=== PATIENT | male | born 1960 | race Caucasian/White ===

== ENCOUNTER 2021-01-14 08:12 | Outpatient (CLI) | payer OTHER, SELFPAY | END 2021-01-14 08:13 | disposition home or self-care (01) | LOC: ANHCOVIDVC 08:12 | PROVIDERS: PCP Family Medicine | DX: Z23 Encounter for immunization (principal) | CPT/HCPCS: 0001A; 91300 ==

== ENCOUNTER 2021-02-04 08:14 | Outpatient (CLI) | payer OTHER, SELFPAY | END 2021-02-04 08:15 | LOC: ANHCOVIDVC 08:14 | PROVIDERS: PCP Family Medicine | DX: Z23 Encounter for immunization (principal) | CPT/HCPCS: 0002A; 91300 ==

== ENCOUNTER → 2021-04-06 08:38 | Outpatient (CLI) | payer OTHER, SELFPAY ==
--- NOTE | ~2021-04-06 | XR_ITS ---
EXAMINATION: XR shoulder RT min 2V DATE: 04/06/2021 08:59 INDICATION: Right shoulder pain. TECHNIQUE: 4 views of right shoulder were obtained. COMPARISON: None. FINDINGS: Bone alignment is normal. No fracture. There is moderate osteoarthritis of glenohumeral bever[place] nt and mild osteoarthritis of acromioclavicular joint. A calcified right lung nodule is consistent wi th old granulomatous disease. IMPRESSION: 1. Polyarticular osteoarthritis. Reviewed, dictated and finalized at location B.
--- NOTE | ~2021-04-06 | XR_ITS ---
EXAMINATION: XR shoulder LT min 2V DATE: 04/06/2021 08:59 INDICATION: Left shoulder pain. TECHNIQUE: 4 views of left shoulder were obtained. COMPARISON: None. FINDINGS: Bone alignment is normal. No fracture. There is mild osteoarthritis of glenohumeral joint a nd acromioclavicular joint. IMPRESSION: 1. Mild polyarticular osteoarthritis. Reviewed, dictated and finalized at location B.
== END ==
PROVIDERS: PCP Family Medicine; Visit Provider Physician Assistant Medical
DX: M19.012 Primary osteoarthritis, left shoulder (principal); M19.011 Primary osteoarthritis, right shoulder
CPT/HCPCS: 73030

== ENCOUNTER 2024-04-09 08:59 | Outpatient (CLI) | payer MEDICARE, OTHER, SELFPAY ==
--- NOTE | ~2024-04-09 | XR_ITS ---
Lumbosacral Spine: AP and lateral views Clinical History: Pain Findings: The normal lordotic curve is maintained. No fracture or subluxation. There is severe degene rative disc narrowing at L4-L5. There is mild to moderate degenerative disc changes at remaining lumb ar spine. There is severe facet arthropathy throughout the lumbar spine. The sacroiliac joints are no rmally outlined. Impression: Advanced degenerative spondylosis, as above. Reviewed, dictated and finalized at location M. Impression: Advanced degenerative spondylosis, as above.
== END 2024-04-09 09:00 ==
PROVIDERS: PCP Family Medicine; Visit Provider Nurse Practitioner Adult Health
DX: M47.896 Other spondylosis, lumbar region (principal)
CPT/HCPCS: 72100

== ENCOUNTER 2025-04-24 08:03 | Outpatient (CLI) | payer MEDICARE, OTHER, SELFPAY ==
--- NOTE | ~2025-04-24 | CT_ITS ---
Non-contrast CT scan of the Pelvis Clinical indication: Umbilical hernia Technique: 2.5 mm axial scans were obtained through the pelvis without intravenous or oral contrast. Dose reduction technique was used on this scan by utilizing automated exposure control and iterative reconstruction technique. The dose-length product (DLP) was 696.78 mGy-cm. Findings: Small fat-containing umbilical hernia present. Visualized bowel loops are unremarkable. No bowel wall thickening or bowel obstruction evident. Urinary bladder unremarkable. Prostate gland is enlarged. No ascites. Suggestion of undescended right testis. No fracture or dislocation seen. Osseous structures are intact. Impression: Small fat-containing umbilical hernia. Suspected undescended right testis. Correlate with physical exam. Enlarged prostate gland. Reviewed, dictated and finalized at [facility]. Impression: Small fat-containing umbilical hernia. Suspected undescended right testis. Correlate with physical exam. Enlarged prostate gland.
== END 2025-04-24 08:04 | disposition home or self-care (01) ==
LOC: MICIMG 08:03
PROVIDERS: PCP Family Medicine; Visit Provider Surgery
DX: K42.9 Umbilical hernia without obstruction or gangrene (principal); R10.31 Right lower quadrant pain
CPT/HCPCS: 72192

== ENCOUNTER 2025-06-01 12:57 | Outpatient (CLI) | payer MEDICARE, OTHER, SELFPAY ==
--- NOTE | ~2025-06-01 | MR_ITS ---
EXAMINATION: MR brain/brain stem wo/w con DATE: 06/01/2025 13:46 INDICATION: Chronic migraine TECHNIQUE: Magnetic resonance imaging (MRI) of the brain and brainstem was performed without and with 20 mL Multihance intravenous contrast. Sequences included sagittal and axial T1-weighted SE, axial d iffusion-weighted FS SE, axial 3D SWAN, axial T2-weighted FLAIR, and axial T2-weighted FSE. Postcontr ast axial and coronal T1-weighted SE was obtained. Apparent diffusion coefficient (ADC) maps were cre ated. COMPARISON: Head CT dated 12/20/[address] angiogram dated 05/28/2019 FINDINGS: There are no areas of restricted diffusion to suggest acute infarction. No intracranial hemorrhage or abnormal intracranial mass lesion. There is mild scattered nonspecific increased T2-weighted signal intensity in the cerebral white matter, predominantly involving the deep and periventricular white ma tter which is within normal limits for age. There are no intraparenchymal signal abnormalities seen o n the other pulse sequences. The ventricles are symmetric and normal in size. There are no abnormal e xtra-axial fluid collections. Flow voids are seen in the cerebral arteries on the T2-weighted sequenc es consistent with their expected patency. Mild mucosal thickening the bilateral ethmoid and frontal sinuses and moderate thickening along the floor of the bilateral maxillary sinuses. Visualized orbits and soft tissues are unremarkable. There are no areas of abnormal enhancement on the post contrast i mages. IMPRESSION: 1. Normal for age brain with mild periventricular predominant white matter T2 hyperintensity consiste nt with chronic small vessel ischemic disease. No acute intracranial process or abnormally enhancing brain lesions. Reviewed, dictated and finalized at location A. IMPRESSION: 1. Normal for age brain with mild periventricular predominant white matter T2 h yperintensity consistent with chronic small vessel ischemic disease. No acute i ntracranial process or abnormally enhancing brain lesions.
== END 2025-06-01 12:58 | disposition home or self-care (01) ==
LOC: MICIMG 12:58
PROVIDERS: PCP Family Medicine; Visit Provider Registered Nurse
DX: G43.709 Chronic migraine without aura, not intractable, without status migrainosus (principal)
CPT/HCPCS: 70553; A9577

== ENCOUNTER 2025-08-25 09:12 | Outpatient (CLI) | payer MEDICARE, SELFPAY ==
--- NOTE | 2025-08-25 09:31 | ECG_ITS ---
Test Date: 2025-08-25 09:33:24 Measurements Intervals [place] Rate: 48 P: 55 IN: 215 QRS: 3 QRSD: 115 T: 24 QT: 399 QTc: 360 Interpretive Statements SINUS BRADYCARDIA WITH FIRST DEGREE AV BLOCK INTRAVENTRICULAR CONDUCTION DELAY BORDERLINE R WAVE PROGRESSION, ANTERIOR LEADS CONSIDER INFERIOR INFARCT, AGE INDETERMINATE ABNORMAL ECG No previous ECG available for comparison Electronically Signed On 08-25-2025 11:40:20 CDT by Hussain Goins D.O.
--- OUTSIDE RECORDS SUMMARY | 2025-08-25 10:13 | XMS_ITS | Clinical Summary ---
Author Organization [facility] [facility] Address [address] [place] [address] Care Team Providers Care Truck Bench Mechanic Name Role Phone José Howard MD Primary Care Provider [phone] Allergies No known active allergies Medications CLARINEX 5 mg Oral Tab Take 5 mg by mouth daily. 7 Active NASONEX NA Administer in each nostril daily. Active ATENOLOL 50 mg Oral Tab Take 50 mg by mouth daily. 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 Active MULTIVITAMIN Oral Tab Take by mouth. Activ e DICLOFENAC SODIUM PO Take 50 mg by mouth.As needed 8 Active mometasone (NASONEX) 50 mcg/actuation [place], Non-Aerosol ADMINISTER 2 SPRAYS IN EACH NOSTRIL ONCE DAILY 51 Gram 1 01/11/2023 4:45 PM PRINTING TABLE HAND 2 Active naproxen sodium (ANAPROX DS) 550 mg tablet Take 1 Tablet (550 mg) by mouth every 12 hours as needed for pain. 30 Tablet 01/31/2023 10:52 AM CDT 3 Active celecoxib (CeleBREX) 200 mg capsule Take 1 Capsule (200 mg) by mouth 2 times daily. 60 Capsule 02/15/2023 4:20 PM CDT 3 Active colchicine (COLCRYS) 0.6 mg tablet Take 2 tablets at first sign of a flare, then take 1 tablet one hour later. 3 Tablet 06/09/2023 12:55 PM CDT 3 Active mometasone (NASONEX) 50 mcg/actuation [place], Non-Aerosol ADMINISTER 2 SPRAYS IN EACH NOSTRIL ONCE DAILY. 51 Gram 1 04/30/2024 9:04 AM CDT 4 Active rosuvastatin (CRESTOR) 20 mg tablet Take 1 Tablet (20 mg) by mouth daily. 90 Tablet 05/28/2024 5:41 PM CDT 4 Active galcanezumab-gn lm (Emgality Pen) 120 mg/mL Pen Injector Inject 1 mL by subcutaneous injection every 28 days. Administer 2 injections together for the first dose. 2 mL 2 4 Active SUMAtriptan (IMITREX) 50 mg tablet TAKE 1 TABLET BY MOUTH AT ONSET OF MIGRAINE. MAY REPEAT DOSE IN 2 HOURS IF NO RELIEF. MAX OF 2 TABLETS PER 24 HOURS. 9 Tablet 4 Active desloratadine (CLARINEX) 5 mg tablet TAKE ONE TABLET BY MOUTH ONCE DAILY 90 Tablet 4 Active SUMAtriptan (IMITREX) 50 mg tablet TAKE 1 TABLET BY MOUTH AT ONSET OF HEADACHE. MAY REPEAT DOSE IN 2 HOURS IF NO RELIEF. MAX OF 2 TABLETS PER 24 HOURS. 9 Tablet 2 5 Active Active Problems Problem Noted Date Diagnosed Date Migraine with aura 02/02/2009 Encounters Date Type Department Care Team Description 07/21/2025 External Device Data [facility] ABSTRACTION Provider, Abstract from Last 3 Months Immunizations Immunization Administration Dates Next Due (ADACEL/BOOSTRIX)(10 YR UP) TDAP VACCINE, 0.5ML, IM 08/15/2023 (PREVNAR 20)(6 WKS UP) PNEUM OCOCCAL CONJUGATE VACCINE 20-VALENT (PCV20), POLYSACCHARIDE CCH284 CONJUGATE, ADJUVANT 0.5 ML (PF) IM 08/15/2023 INFLUENZA VACCINE HIGH DOSE QUADRIVALENT 65 YR U P PF IM 09/03/2023 Family History Medical History Relation Name Comments Heart Disease Father Stroke Father Breast Cancer Mother Relation Name Status Comments Father Mother Social History Tobacco Use Types Packs/Day Years Used Date Smoking Tobacco: Never Alcohol Use Standard Drinks/Week Comments Yes 0 (1 standard drink = 0.6 oz pur e alcohol) Sex and Gender Information Value Date Recorded Sex Assigned at Not on file 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 Gender Identity Not on file Sexual Orientation Not on file Last Filed Vital Signs Vital Sign Reading Time Taken Comments Blood Pressure 118/70 02/08/2009 7:20 AM CDT Pulse 40 02/08/2009 7:20 AM CDT Temperature - - Respiratory Rate - - Oxygen Saturation - - Inhaled Oxygen Concentration - - Weight 103.4 kg (228 lb) 02/08/2009 7:20 AM CDT Height 188 cm (6' 2) 02/08/2009 7:20 AM CDT Body Mass Index 29.27 02/08/2009 7:20 AM CDT Plan of Treatment Health Maintenance Due Date Last Done Comments COLORECTAL SCREENING 2003 Colorectal Cancer Screening 2003 FIT-DNA Q 3 years 2003 FIT/FOBT Q 1 year 2003 Flex Sig/CT Colonography Q 5 years 2003 ZOSTER VACCINE (1 of 2) 2008 INFLUENZA VACCINE (#1) 2025 09/03/2023 RSV VACCINE (60+ or ) (1 - 1-dose 75+ series) 2033 DTAP/TDAP/TD VACCINES (2 - Td or Tdap) 08/15/2033 PNEUMOCOCCAL VACCINE 50+ YEARS Completed 08/15/2023 Insurance RX [facility] [employer] [facility] [employer] [employer] [facility] [employer] Care Teams Truck Bench Mechanic Relationship Specialty Start Date End Date José Howard MD [address] [place] [address] PCP - General 02/08/09
--- OUTSIDE RECORDS SUMMARY | 2025-08-25 10:13 | XMS_ITS | Encounter Summary ---
Author Organization [facility] Address [address] [facility] [address] [place] [address] Care Team Providers Care Mine Safety Manager Name Role Phone José Howard MD Primary Care Provider [phone] José Howard MD Primary Care Provider [phone] Encounter Details Date Type Department Care Team (Late st Contact Info) Description 11/29/2016 Orders Only [facility] ProviderMorris MD [address] [place] [id number] Social History Tobacco Use Types Packs/Day Years Used Date Smoking Tobacco: Never Alcohol Use Standard Drinks/Week Comments Yes 0 (1 standard drink = 0.6 oz pur e alcohol) Sex and Gender Information Value Date Recorded Sex Assigned at Not on file 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 Historical Provider [facility] Final Result documented in this encounter Visit Diagnoses Not on filedocumented in this encounter Care Teams Mine Safety Manager Relationship Specialty Start Date End Date José Howard MD PCP - General 02/09/17 José Howard MD PCP - General 07/25/10 02/08/17 documented as of this encounter
--- OUTSIDE RECORDS SUMMARY | 2025-08-25 10:13 | XMS_ITS | Clinical Summary ---
Author Organization [facility] [place] [address] Address [address] [place] [address] Care Team Providers Care Visor Installer Name Role Phone José Howard MD Primary Care Provider [phone] Allergies No known active allergies Medications cholecalciferol (VITAMIN D-3) 5,000 unit tablet Take 0.4 tablets (2,000 Units total) by mouth daily Active desloratadine (CLARINEX) 5 mg tablet Take 1 tablet (5 mg total) by mouth daily Active mometasone (NASONEX) 50 mcg/actuation nasal spray Administer 2 sprays into each nostril daily Active vit C/E/Zn/coppr/sarah tein/zeaxan (PRESERVISION AREDS-2 ORAL) Take 2 tablet/capsule by mouth 2 (two) times a day. Active aspirin 81 mg enteric coated tablet Take 1 tablet (81 mg total) by mouth daily Active galcanezumab-gn lm 120 mg/mL syringe Inject 120 mg under the skin every 30 (thirty) days Active colchicine (COLCRYS) 0.6 mg tabletIndicatio ns:prevention of acute gout attack Take 2 tablets at first sign of a flare then 1 tablet an hour later 3 tablet 3 Active SUMAtriptan (IMITREX) 50 mg tablet as needed 4 Active rosuvastatin (CRESTOR) 20 mg tablet Take 1 tablet (20 mg total) by mouth daily 90 tablet 3 4 Active Active Problems Problem Noted Date Diagnosed Date Typical atrial flutter 10/01/2018 Anticoagulation management encounter 10/01/2018 Assessment & Plan (10/01/2018 3:33 PM HELP DESK TECHNICIAN): Presently, the patient is tolerating anticoagulation. He understands that he will need to remain on anticoagulation for at least 2 months post ablation. Paroxysmal atrial fibrillation 09/26/2018 Overview (09/26/2018): Added automatically from request for surgery [id number] Assessment & Plan (10/01/2018 3:32 PM HELP DESK TECHNICIAN): Patient has highly symptomatic paroxysmal atrial fibrillation. Review of his previous ECGs also demonstrates the presence of typical right atrial flutter. We discussed options for management, including antiarrhythmic drug therapy and ablation. The patient is averse to additional medications, but is interested in considering ablation. We discussed the rationale for atrial fibrillation ablation, including the steps involved in ablation. He will concurrently undergo ablation of his right atrial flutter. I detailed the risks of the procedure, including vascular injury/hematoma, myocardial injury/perforation, stroke, myocardial infarction, pulmonary vein stenosis, thermal esophageal injury, and . I estimated a 70-80% chance of freedom from long-term atrial arrhythmia, and the patient understands that occasionally a second procedure is necessary. Prior to ablation, I recommended that the patient undergo CT scanning with reconstruction of the left atrium, to assist with mapping and ablation. If the patient wishes to undergo ablation, my office will make the appropriate arrangements. From: November, Tavo LS, Troy JS, Alison H, Arnulfo SHANNON, Paula JE, Johnna YOANDY, Nicki PT, Vignesh MITCHELL, ME, Paulo KT, Honorio RL, Mustapha WG, Jeannine PJ, Amber CM, Lin CW. 2014 AHA/ACC/HRS guideline for the management of patients with atrial fibrillation: a report of the [place] College of Cardiology/[place] Heart Association Task Force on Practice Guidelines and the Heart Rhythm Society. J Am Vahe Cardiol 2014. 6.3. AF Catheter Ablation to Maintain Sinus Rhythm: Recommendations Class IIA. In patients with recurrent symptomatic paroxysmal AF, catheter ablation is a reasonable initial rhythm control strategy prior to therapeutic trials of antiarrhythmic drug therapy, after weighing risks and outcomes of drug and ablation therapy ([phone]). 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 (02/16/2017): SECOND CARDIOMYOPATH NOS Resolved Problems Problem Noted Date Diagnosed Date Resolved Date Paroxysmal ventricular tachycardia 03/28/2014 09/26/2017 Overview (02/15/2017): PAROX VENTRIC TACHYCARD Surgical History Surgery Date Site/Laterality Comments OTHER SURGICAL HISTORY Reveal implant CARDIAC CATHETERIZATION 10/12/2016 - 11/11/2016 APPENDECTOMY COLECTOMY sigmoid colectomy VASECTOMY 11/12/2000 - 11/11/2001 Medical History Medical History Date Comments Hypertension Obesity (BMI 30.0-34.9) Paroxysmal atrial fibrillation (HCC) Migraine Migraines 1985 Family History Medical History Relation Name Comments Depression Daughter Jaclyn Ramirez Heart attack Father Tom Ramirez Myocardial Inf arction; Hypertension Father Tom Ramirez Stroke Father Tom Ramirez Cancer Maternal Grandmother Lori Shaw Cancer Mother VTanisha Bree Ramirez Relation Name Status Comments Daughter Jaclyn Ramirez Father Tom Ramirez Alive Maternal Grandmother Lori Shaw Mother VTanisha Bree Ramirez Social History Tobacco Use Types Packs/Day Years Used Date Smoking Tobacco: Never Smokeless Tobacco: Never Alcohol Use Standard Drinks/Week Comments Yes 6 (1 standard drink = 0.6 oz pur e alcohol) beer almost daily1-2 Social Connection and Isolation Panel Answer Date Recorded In a typical week, how many times do you talk on the phone with family, friends, or neighbors? Once a week 06/05/2023 How often do you get togethe r with friends or relatives? More than three times a week 06/05/2023 How often do you attend chur ch or hoahaoism services? Never 06/05/2023 Do you belong to any clubs o r organizations such as lutheran groups, unions, fraternal or athletic groups, or school groups? No 06/05/2023 How often do you attend meet ings of the clubs or organizations you belong to? Not asked 06/05/2023 Are you , , di vorced, , never , or living with a partner? 06/05/2023 Overall Financial Resource Strain (CARDIA) Answe r Date Recorded How hard is it for you to pa y for the very basics like food, housing, medical care, and heating? Not hard at all 06/05/2023 PHQ-2 Answer Date Recorded Patient Health Questionnaire-2 Score 0 06/05/2023 [facility] [place] [facility] - Occupational Stress Questionnaire Answer Date Recorded Do you feel stress - tense, restless, nervous, or anxious, or unable to sleep at night because your mind is troubled all the time - these days? Only a little 06/05/2023 Exercise Vital Sign Answer Date Recorde d On average, how many days pe r week do you engage in moderate to strenuous exercise (like a brisk walk)? 2 days 06/05/2023 On average, how many minutes do you engage in exercise at this level? 10 min 06/05/2023 Hunger Vital Sign Answer Date Recorded Within the past 12 months, y ou worried that your food would run out before you got the money to buy more. Never true 06/05/20 23 Within the past 12 months, t he food you bought just didn't last and you didn't have money to get more. Never true 06/05/2023 PRAPARE - Transportation Answer Date Re corded In the past 12 months, has l ack of transportation kept you from medical appointments or from getting medications? No 05/13 In the past 12 months, has l ack of transportation kept you from meetings, work, or from getting things needed for daily living? No 06/05/2023 Housing Stability Vital Sign Answer Pee e Recorded In the last 12 months, was t here a time when you were not able to pay the mortgage or rent on time? No 06/05/2023 In the last 12 months, how many places have you lived? 1 06/05/2023 In the last 12 months, was t here a time when you did not have a steady place to sleep or slept in a fdc (including now)? No 06/05/2023 Sex and Gender Information Value Date Recorded Sex Assigned at Not on file Legal Sex Male 8:57 AM HELP DESK TECHNICIAN Gender Identity Male 06/18/2019 11:34 AM CDT Sexual Orientation Straight 06/18/2019 11 :34 AM CDT Obstetrics History Last Filed Vital Signs Vital Sign Reading Time Taken Comments Blood Pressure 114/68 07/30/2024 9:10 AM CDT Pulse 58 07/30/2024 9:10 AM CDT Temperature 36.8 C (98.3 F) 06/05/2023 2:39 PM CDT Respiratory Rate 16 02/08/2022 1:02 PM CDT Oxygen Saturation 99% 07/30/2024 9:10 AM CDT Inhaled Oxygen Concentration - - Weight 107.5 kg (237 lb) 07/30/2024 9:10 AM CDT Height 188 cm (6' 2) 07/30/2024 9:10 AM CDT Body Mass Index 30.43 07/30/2024 9:10 AM CDT Plan of Treatment Health Maintenance Due Date Last Done Comments Colon Cancer Screening-Colonoscopy 1958 Fall Risk Assessment 1960 Prostate Cancer Screening-PSA 1960 Pneumococcal vaccine 65+ (1 of 1 - PCV) 2008 Zoster Vaccine (1 of 2) 2008 Well Visit 65+ 2023 Depression Screening 06/05/2024 06/05/2023 Influenza Vaccine (#1) 2025 DTaP/Tdap/Td Vaccine (2 - Td or Tdap) 08/15/203302/2023 Hepatitis B Screening Completed 06/05/2023 Hepatitis C Screening Completed 06/05/2023 Procedures Procedure Name Priority Date/Time Associated Diagnosis Comments HEPATITIS C ANTIBODY Routine 06/05/2023 8:04 PM CDT Other chronic pain Arthralgia, unspecified joint from Last 3 Months or Most Recently Relevant to Health Maintenance Results * Hepatitis C antibody (06/05/2023 8:04 PM CDT) Hep C Ab Nonreactive Nonreactive ANDIE MCNULTY Comment: Interpretive Data Nonreactive: Antibodies to HCV not detected. Does NOT exclude the possibility of recent exposure to HCV. Equivocal: Equivocal for HCV antibodies. Supplemental molecular testing will be automatically performed to determine infection status in accordance with current CDC screening recommendations. Reactive: Positive for HCV antibodies. This may represent current or past HCV infection. Supplemental molecular testing will be automatically performed to determine current infection status in accordance with current CDC screening recommendations. Interpretive data was last revised on 2020. Blood 06/05/2023 8:04 PM CDT 06/05/2023 10:48 PM CDT Shaq Hernández MD LAB MICROBIOLOGY - G[place] [address] [address] [place] [address] from Last 3 Months or Most Recently Relevant to Health Maintenance [facility] [id number] [facility] [id number] [facility] [id number] MEDICARE Care Teams Visor Installer Relationship Specialty Start Date End Date José Howard MD PCP - General 02/09/17
== END 2025-08-25 09:13 | disposition home or self-care (01) ==
LOC: ANHSURGERY 09:15
PROVIDERS: PCP Family Medicine; Visit Provider Surgery
DX: R94.31 Abnormal electrocardiogram [ECG] [EKG] (principal); E78.2 Mixed hyperlipidemia; I10 Essential (primary) hypertension
CPT/HCPCS: 93005

== ENCOUNTER 2025-08-28 00:20 | Day surgery (SDC) | payer MEDICARE, SELFPAY ==
[2025-08-21 09:33] VITALS: BMI 29.5
--- NOTE | 2025-08-21 09:45 | PC.NURSE ---
[facility] has started construction of its new state of the art ER which will open Spring 2026. With this, we anticipate parking may be a challenge for some our surgical patients and families. Parking spaces are limited but are available for all Surgical, obstetrics, and ER patients sharing this lot. If you arrive and find you are having a hard time finding a parking space, please note that we understand the challenges, please drive around the hospital and park near Hospital Entrance 1. When you enter this entrance, you can ask a volunteer to direct or take you back to the surgical waiting area to check in. We appreciate everyone?s understanding of these expected challenges while we build for your future. Report to the Outpatient Waiting Room, entrance under the green pavilion located off [address], at time _1000_ on date _[id number]_. Planned Procedure Time: _1200_.? Time changes happen often and if your time is changed the preop area will call you the afternoon before. - You and your visitor will be asked to self-screen and do not enter if you have any COVID symptoms. Please call surgeon if you need to reschedule. - A mask is optional within the hospital at this time. Patients may have clear liquids (water, carbonated beverages, clear teas, apple juice) until 3 hours prior to surgery with a maximum of 20 ounces. - No food from midnight until time of surgery and no smoking, or chewing tobacco (or any form of nicotine). No chewing gum, candy or mints. Take only the following medications with a SIP of water on the morning of surgery: _Nose spray if needed__ DO NOT STOP ANY OF YOUR OTHER PRESCRIPTION MEDICATIONS PRIOR TO SURGERY EXCEPT THE FOLLOWING Hold all vitamins and supplements for 3 days per anesthesiologist. Medications to discontinue per physician Date to take last dose Please no make-up, nail bots[place], hairspray, perfume, deodorant, or body powder the day of surgery.? No jewelry (including any body piercings) or valuables the day of surgery, leave them at home.? Please take a shower or bath the night before, or the morning of, surgery with an antibacterial soap.? Wear comfortable, loose fitting clothing.? - Jewelry must be removed prior to entering the operating room.? Rings and piercings that are not removed may be cut off. - The hospital will not accept responsibility for valuables.? - Please leave all valuables, including medications, at home the day of surgery. If you are going home after surgery, a licensed heavy truck driver must drive you home.? - NO public transportation without another adult if you receive anesthesia. - We recommend that an adult stay with you for 24 hours following discharge. - We also recommend that you do not drive, make important decision, drink alcoholic beverages, or take any drugs that were not prescribed by your health care provider for at least 24 hours after your discharge time. Follow any additional instructions given to you from your surgeon. Telephone instructions given to __Ivan__and asked if any additional questions and then verbalized understanding. Patient advised to call surgeon office or pre surgery nurse liaison [phone] if any additional questions.
[2025-08-28] VITALS (8 sets, daily range): BP systolic 107–128; BP diastolic 63–73; PULSE 50–59; RESP 10–20; TEMP 36.2–36.5; O2SAT 99–100
--- OUTSIDE RECORDS SUMMARY | 2025-08-28 00:23 | XMS_ITS | Clinical Summary ---
Author Organization [employer] [place] Address [address] [place] [address] Care Team Providers Care Job Analyst Name Role Phone José Howard MD Primary Care Provider [phone] Allergies No known active allergies Medications CLARINEX 5 mg Oral Tab Take 5 mg by mouth daily. 7 Active NASONEX NA Administer in each nostril daily. Active ATENOLOL 50 mg Oral Tab Take 50 mg by mouth daily. 7 Active IMITREX 6 mg/0.5 mL subCUT Soln Inject 6 mg by subcutaneous injection Sheet Writer - Today. Active MULTIVITAMIN Oral Tab Take by mouth. Activ e DICLOFENAC SODIUM PO Take 50 mg by mouth.As needed 8 Active mometasone (NASONEX) 50 mcg/actuation [place], Non-Aerosol ADMINISTER 2 SPRAYS IN EACH NOSTRIL ONCE DAILY 51 Gram 1 01/11/2023 4:45 PM [employer]TER [employer]S 2 Active naproxen sodium (ANAPROX DS) 550 [...] CDT 3 Active mometasone (NASONEX) 50 mcg/actuation [place], Non-Aerosol ADMINISTER 2 SPRAYS IN EACH NOSTRIL [...] PNEUM OCOCCAL CONJUGATE VACCINE 20-VALENT (PCV20), POLYSACCHARIDE [id number] CONJUGATE, ADJUVANT 0.5 ML (PF) IM 08/15/2023 [...] on file Legal Sex Male 5:35 AM SORTER [employer]S Gender Identity Not on file Sexual Orientation [...] PLANS (INTERNAL) [facility] Care Teams Job Analyst Relationship Specialty Start Date End Date José Howard MD [address] [place] [address] PCP - General 02/08/09
--- OUTSIDE RECORDS SUMMARY | 2025-08-28 00:23 | XMS_ITS | Encounter Summary ---
Author Organization [facility] Address [address] [place] [address] Care Team Providers Care Director Validation Name Role Phone José Howard MD Primary Care Provider [phone] José Howard MD Primary Care Provider [phone] Encounter Details Date Type Department Care Team (Late st Contact Info) Description 11/29/2016 Orders Only [facility] ProviderMorris MD [address] [place] [address] Social History Tobacco Use Types Packs/Day Years Used Date Smoking Tobacco: Never Alcohol Use Standard Drinks/Week Comments Yes 0 (1 standard drink = 0.6 oz pur e alcohol) Sex and Gender Information Value Date Recorded Sex Assigned at Not on file Legal Sex Male 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
--- OUTSIDE RECORDS SUMMARY | 2025-08-28 00:23 | XMS_ITS | Clinical Summary ---
Author Organization [facility] [place] [address] Address [address] [place] [address] Care Team Providers Care Lye Treater Name Role Phone José Howard MD Primary Care Provider [phone] Allergies No known active allergies Medications cholecalcifero l (VITAMIN D-3) 5,000 unit tablet Take 0.4 tablets (2,000 Units total) by mouth daily Active desloratadine (CLARINEX) 5 mg tablet Take 1 tablet (5 mg total) by mouth daily Active mometasone (NASONEX) 50 mcg/actuation nasal spray Administer 2 sprays into each nostril daily Active vit C/E/Zn/coppr/l utein/zeaxan (PRESERVISION AREDS-2 ORAL) Take 2 tablet/capsule by mouth 2 (two) times a day. Active aspirin 81 mg enteric coated tablet Take 1 tablet (81 mg total) by mouth daily Active galcanezumab-g nlm 120 mg/mL syringe Inject 120 mg under the skin every 30 (thirty) days Active colchicine (COLCRYS) 0.6 mg tabletIndicati ons:prevention of acute gout attack Take 2 tablets at first sign of a flare then 1 tablet an hour later 3 tablet 06/08/20 23 Active SUMAtriptan (IMITREX) 50 mg tablet as needed 05/21/20 24 Active rosuvastatin (CRESTOR) 20 mg tablet TAKE 1 TABLET BY MOUTH EVERY DAY 90 tablet 3 08/26/20 25 Active rosuvastatin (CRESTOR) 20 mg tablet Take 1 tablet (20 mg total) by mouth daily 90 tablet 3 09/01/20 24 025 Discontinued Active Problems Problem Noted Date Diagnosed Date Typical atrial flutter 10/01/2018 Anticoagulation management encounter 10/01/2018 Assessment & Plan (10/01/2018 3:33 PM AUTOMOTIVE GENERAL SALES MANAGER): Presently, the patient is tolerating anticoagulation. He understands that he will need to remain on anticoagulation for at least 2 months post ablation. Paroxysmal atrial fibrillation 09/26/2018 Overview (09/26/2018): Added automatically from request for surgery [id number] Assessment & Plan (10/01/2018 3:32 PM AUTOMOTIVE GENERAL SALES MANAGER): Patient has highly symptomatic paroxysmal atrial fibrillation. [...] with atrial fibrillation: a report of the [place] College of Cardiology/[place] Heart Association Task Force on Practice Guidelines [...] Cancer Maternal Grandmother Lori Shaw Cancer Mother V. Bree Ramirez Relation Name Status Comments Daughter Jaclyn Ramirez Father Tom Ramirez Alive Maternal Grandmother Lori Shaw Mother VTanisha Ramirez Social History Tobacco Use Types Packs/Day [...] often do you attend chur ch or worship services? Never 06/05/2023 Do you belong to any clubs o r organizations such as restorationism groups, unions, fraternal or athletic groups, or [...] Recorded Patient Health Questionnaire-2 Score 0 06/05/2023 [facility] - Occupational Stress Questionnaire Answer Date Recorded [...] place to sleep or slept in a assisted (including now)? No 06/05/2023 Sex and Gender Information Value Date Recorded Sex Assigned at Not on file Legal Sex Male 8:57 AM AUTOMOTIVE GENERAL SALES MANAGER Gender Identity Male 06/18/2019 11:34 AM CDT [...] 8:04 PM CDT 06/05/2023 10:48 PM CDT us Shaq Hernández MD LAB MICROBIOLOGY - GENE RAL ORDERABLES Final Result Performing Organization Address City/[place] [address] [facility] Department [place] [address] from Last 3 Months or Most Recently Relevant to Health Maintenance Insurance [facility] [id number] [facility] [id number] [facility] [id number] MEDICARE Care Teams Lye Treater Relationship Specialty Start Date End Date José Howard MD PCP - General 02/09/17
--- OUTSIDE RECORDS SUMMARY | 2025-08-28 00:23 | XMS_ITS | Patient Health Record ---
Author Organization [facility] [email or web address] [place] ([address] Address [address] [place] [address] Care Team Providers Care Hide Worker Name Role Phone Lee MITCHELL, José Primary Care Provider Zandra Thomas Unavailable [phone] Allergies No Known Allergies Reason For Referral No Information Medications Medication SIG (Take, Route, Frequency, Duration) Notes Start Date End Date Status Mometasone Furoate 50 MCG/ACT ADMINISTER 2 SPRAYS IN EACH NOSTRIL ONCE DAILY Nasal; Duration: 90 Days Active Lisinopril 10 MG 10 MG ORALLY DAILY O ral; Duration: 90 Days Active Clarinex 5 MG 1 tablet Orally Once a day Active Aspirin Childrens 81 MG 1 tablet Orally Once a day Active Rosuvastatin Calcium 20 MG TAKE 1 TABLET BY MOUTH EVERY DAY Oral; Duration: 90 Days Active Qulipta 60 MG 1 tablet Orally Once a day; Duration: 30 days Active Vitamin D 50 MCG (1999) 1 tablet Oral ly Once a day Active Ubrelvy 100 MG 1 tablet Orally twice a day As needed 03/19/2025 Active Social History Tobacco Use: Social History Observation Description Date Details (start date - stop date) Never Smoker NA - NA Sex Assigned At : Social History Observation Description Sex Assigned At Male Smoking Smart Form: Question Answer Notes Are you a: never smoker Problems Problem Type SNOMED Code ICD Code Onset Dates Problem Status W/U Status Risk Notes Problem Chronic migraine without aura, non-refractor y (disorder) (138563479141 100) Migraine without aura, not intractable, without status migrainosus (G43.009) Active confirmed Problem Migraine with aura (4094784) Migraine with aura, not intractable, without status migrainosus (G43.109) Active confirmed Problem Chronic migraine without aura, non-intractab le (652500143390 100) Chronic migraine without aura, not intractable, without status migrainosus (G43.709) Active confirmed Vital Signs Oximetry 99 % 06/18/2025 Blood pressure diastolic 74 mm Hg 06/18/2025 Height 74 in 06/18/2025 Blood pressure systolic 143 mm Hg 06/18/2025 Weight 235.6 lbs 06/18/2025 BMI 30.25 kg/m2 06/18/2025 Encounters Encounter Location Date Provider Diagnosis [facility] [address] [place] [address] [employer] [address] [address] 04/30/2025 Zandra Pruitt Chronic migraine without aura, not intractable, without status migrainosus G43.[address] [address] 06/18/2025 Zandra Pruitt Chronic migraine without aura, not intractable, without status migrainosus G43.[address] [address] 03/19/2025 Zandra Pruitt Chronic migraine without aura, not intractable, without status migrainosus G43.[address] [address] 04/30/2025 Zandra Pruitt [address] [address] 04/30/2025 Zandra Pruitt [address] [address] 06/30/2025 Zandra Pruitt Chronic migraine without aura, not intractable, without status migrainosus G43.709 [facility] [address] [place] [address] 06/23/2025 Zandra Pruitt [facility] [address] [place] [address] 06/22/2025 Zandra Pruitt Assessments Encounter Date Diagnosis (ICD Code) Assessment Notes Treatment Notes Treatment Clinical Notes Section Notes 03/19/2025 Chronic migraine without aura, not intractable, without status migrainosus (ICD-10 - G43.709) -Abortive treatment plan: Start Ubrelvy 100 mg. Gave samples of Nurtec.-Preventi ve treatment plan: Discontinue Emgality. Start Qulipta 60 mg. Discussed taking the medication at night to avoid fatigue and drowsiness during the day. *Do not send script for Qulipta yet. The patient will trial this medication for two weeks (he has a month of medication left from his prior prescription) and let our office know if he wants to continue Qulipta or start Aimovig.-Educate d the patient on migraine lifestyle recommendations. I recommended the following measures: avoid known triggers of migraine, drink > 100 fluid ounces of non-caffeinated fluid daily, limit caffeine to 2 servings/day, sleep 7-8 hours/night and address any sleep concerns with us and report symptoms of snoring or fatigue; healthy management of stress; avoid treating headaches more than 2 days/week with abortive medication unless approved in treatment plan; can take Riboflavin 400 mg and Magnesium 500 mg daily as supplements; keep scheduled follow-up appointments 04/30/2025 Chronic migraine without aura, not intractable, without status migrainosus (ICD-10 - G43.709) -Recommended imaging: Send order for MRI Brain with and without contrast to [facility]. -Abortive treatment plan: Continue Ubrelvy.-Prevent deena treatment plan: Continue Qulipta.-Educate d the patient on migraine lifestyle recommendations. I recommended the following measures: avoid known triggers of migraine, drink > 100 fluid ounces of non-caffeinated fluid daily, limit caffeine to 2 servings/day, sleep 7-8 hours/night and address any sleep concerns with us and report symptoms of snoring or fatigue; healthy management of stress; avoid treating headaches more than 2 days/week with abortive medication unless approved in treatment plan; can take Riboflavin 400 mg and Magnesium 500 mg daily as supplements; keep scheduled follow-up appointments 06/18/2025 Chronic migraine without aura, not intractable, without status migrainosus (ICD-10 - G43.709) -Abortive treatment plan: Continue Ubrelvy. His MRI brain scan was normal for his age and did not show any structural cause of his migraine. Please send new PAs and refills for both medications. He had a change in Medicare insurance on 06/12/25.-Preventi ve treatment plan: Continue Qulipta.-Educate d the patient on migraine lifestyle recommendations. I recommended the following measures: avoid known triggers of migraine, drink > 100 fluid ounces of non-caffeinated fluid daily, limit caffeine to 2 servings/day, sleep 7-8 hours/night and address any sleep concerns with us and report symptoms of snoring or fatigue; healthy management of stress; avoid treating headaches more than 2 days/week with abortive medication unless approved in treatment plan; can take Riboflavin 400 mg and Magnesium 500 mg daily as supplements; keep scheduled follow-up appointments 06/30/2025 Chronic migraine without aura, not intractable, without status migrainosus (ICD-10 - G43.709) Plan Of Treatment Pending Test Test Name Order Date MRI : Brain (with and without gadolinium ) 04/30/2025 Insurance Providers Payer Name Payer Address Payer Phone Subscriber Number Group Number Insured Name Patient Relationship to Insured Coverage Start Date Coverage End Date [employer] [address] [place] [address] [id number] Ivan Ramirez Self - patient is the insured Medical (General) History Medical History History ICD Code migraines A flutter paroxysmal afib hyperlipidemia arthritis Surgical History Surgery Date(Month/Year) appendectomy sigmoid colon resection diverticulitis cardiac ablation
[2025-08-28] MEDS: ACETAMINOPHEN 500 MG TABLET 1000 MG PO (10:45)
[2025-08-28] MEDS: LACTATED RINGERS 1,000 ML 30 ML IV CONT (10:50)
[2025-08-28] MEDS: KETOROLAC 15 MG/ML VIAL (*BKC) IV PUSH (10:55)
--- NOTE | 2025-08-28 12:02 | WPDANESEPPF ---
Anes - Initial Pre Proc Eval Procedure: Operation Date: 08/28/25 12:00 Proposed Procedures p Open Umbilical Hernia Repair with Mesh - Timothy Hernández DO Date/Time: 08/28/25 12:02 Surgeon: Timothy Hernández DO Pre Op Diagnosis: Umb Hernia (1cm) Patient Data Age: 65 Gender: M Height: 1.88 m Weight: 104.5 kg Last Vital Signs Temp 36.5 C 08/28/25 10:13 Pulse 56 L 08/28/25 10:13 Resp 18 08/28/25 10:13 BP 107/73 08/28/25 10:13 Pulse Ox 99 08/28/25 10:13 O2 Del Method Room Air 08/28/25 10:13 Allergies Allergy/AdvReac Type Severity Reaction Status Date / Time No Known Allergies Allergy Verified 08/25/25 08:37 Home Medications ?Medication ?Instructions ?Recorded ?Confirmed ?Type aspirin 81 mg tablet,delayed 81 mg PO DAILY 02/17/20 08/28/25 History release (Adult Low Dose Aspirin) cholecalciferol (vitamin D3) 50 50 mcg PO DAILY 02/17/20 08/28/25 History mcg (2,000 unit) capsule rosuvastatin 20 mg tablet 20 mg PO DAILY 04/06/21 08/28/25 History vit C 250 mg-vit E 90 mg-zinc 40 1 tablet PO BID 05/21/24 08/28/25 History mg-copper 1 [id number]-[id number] capsule (PreserVision AREDS-2) ubrogepant 100 mg tablet (Ubrelvy) 100 mg PO ONCE PRN migraine 03/24/25 08/25/25 History headache mometasone 50 mcg/actuation nasal See Rx Instructions .Route 05/07/25 08/28/25 Rx spray .COMPLEX #51 mL lisinopril 10 mg tablet 10 mg PO DAILY #90 tabs 06/09/25 08/28/25 Rx desloratadine 5 mg tablet See Rx Instructions .Route 08/10/25 08/28/25 Rx .COMPLEX #90 tabs atogepant 60 mg tablet (Qulipta) 60 mg PO HS 08/21/25 08/28/25 History Patient hx anesthesia problems: none Family hx anesthesia problems: none Results Review: All pre-operative results and documents have been reviewed as part of the pre-operative evaluation. [facility] Past Medical History Medical History (Updated 08/27/25 @ 13:41 by Donell Merritt DO) Atrial fibrillation Inadequate emotional support Screening for prostate cancer Screening for thyroid disorder Hypertension Vitamin D deficiency BPH (benign prostatic hyperplasia) Umbilical hernia Epigastric hernia Right shoulder pain Low back pain Diverticulitis of sigmoid colon Need for vaccination Surgical History Surgical History History of open sigmoidectomy History of coronary rotational ablation History of appendectomy Family History Family History Father Cerebrovascular accident Family history of coronary artery disease Hypertension Heart disease Grandparent Family history of malignant neoplasm of breast Mother Breast cancer Sibling No problems noted. Social History Social History (Updated 08/28/25 @ 12:05 by Donell Merritt DO) Smoking status: Never smoker Second hand tobacco smoke exposure: No Alcohol intake: current Alcohol use details: 2 drinks/day Substance use: never Substance use type: does not use Do You Feel Safe in your Home?: Yes Lack of Transportation: No Lack of Food: Never True Current Housing: I Have Housing Concerned About Future Housing: No Difficulty Paying Gas/Electric Bills: No Difficulty Paying for Meds: No Currently Unemployed: No Education: Master's Degree or Higher Difficulty w/ Childcare or Family Care: No Living arrangements: with family Occupation/Education: 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 Informed Consent: The patient's anesthetic plan and its attendant risks and benefits were discussed with the patient/family/POA. Questions were solicited and answers provided to the satisfaction of the patient/family/POA.
--- NOTE | 2025-08-28 12:13 | WPDHPUPDATE1 ---
History and Physical Update Update Date/Time: 08/28/25 12:13 History and Physical has been reviewed, including an updated exam of the patient. There are NO changes in the patient's condition. Risks, benefits, and alternatives have been discussed and questions answered. Patient agrees to proceed with procedure.
--- NOTE | 2025-08-28 12:13 | PM.IMHP ---
H&P: HPI History of Present Illness Date/Time: 08/28/25 12:13 Chief Complaint: umbilical hernia Narrative: 65 yo man presents for umbilical hernia repair. he reports no changes since last seen in office. Review of Systems Review of Systems: All systems reviewed & are unremarkable except as noted in HPI and below Constitutional: Constitutional: Denies chills, Denies fever(s), Denies headache(s) and Denies weight loss Eyes: Eyes: Denies change in vision ENT: Denies dizziness, Denies headache(s), Denies neck mass and Denies throat swelling Cardiovascular: Cardiovascular: Denies chest pain, Denies lightheadedness and Denies dyspnea Respiratory: Respiratory: Denies cough, Denies dyspnea and Denies wheezing Gastrointestinal: Gastrointestinal: Denies abdominal pain, Denies change in bowel habits, Denies nausea and Denies vomiting Genitourinary: Genitourinary: Denies hematuria and Denies dysuria Musculoskeletal: Musculoskeletal: Reports as per HPI Integumentary/Breasts: Skin/Breast: Reports as per HPI Neurologic: Denies dizziness and Denies headache(s) Allergic/Immunologic: Allergic/Immunologic: Denies throat swelling and Denies wheezing [facility] Past Medical History Medical History (Updated 08/27/25 @ 13:41 by Donell Merritt DO) Atrial fibrillation Inadequate emotional support Screening for prostate cancer Screening for thyroid disorder Hypertension Vitamin D deficiency BPH (benign prostatic hyperplasia) Umbilical hernia Epigastric hernia Right shoulder pain Low back pain Diverticulitis of sigmoid colon Need for vaccination Surgical History Surgical History History of open sigmoidectomy History of coronary rotational ablation History of appendectomy Family History Family History Father Cerebrovascular accident Family history of coronary artery disease Hypertension Heart disease Grandparent Family history of malignant neoplasm of breast Mother Breast cancer Sibling No problems noted. Social History Social History (Updated 08/28/25 @ 12:05 by Donell Merritt DO) Smoking status: Never smoker Second hand tobacco smoke exposure: No Alcohol intake: current Alcohol use details: 2 drinks/day Substance use: never Substance use type: does not use Do You Feel Safe in your Home?: Yes Lack of Transportation: No Lack of Food: Never True Current Housing: I Have Housing Concerned About Future Housing: No Difficulty Paying Gas/Electric Bills: No Difficulty Paying for Meds: No Currently Unemployed: No Education: Master's Degree or Higher Difficulty w/ Childcare or Family Care: No Living arrangements: with family Occupation/Education: retired 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 Gender identity (if verbalized by the patient): Male Spiritual care concerns: No Meds Home Medications and Allergies Home Medications ?Medication ?Instructions ?Recorded ?Confirmed ?Type aspirin 81 mg tablet,delayed 81 mg PO DAILY 02/17/20 08/28/25 History release (Adult Low Dose Aspirin) cholecalciferol (vitamin D3) 50 50 mcg PO DAILY 02/17/20 08/28/25 History mcg (2,000 unit) capsule rosuvastatin 20 mg tablet 20 mg PO DAILY 04/06/21 08/28/25 History vit C 250 mg-vit E 90 mg-zinc 40 1 tablet PO BID 05/21/24 08/28/25 History mg-copper 1 [id number] capsule (PreserVision AREDS-2) ubrogepant 100 mg tablet (Ubrelvy) 100 mg PO ONCE PRN migraine 03/24/25 08/25/25 History headache mometasone 50 mcg/actuation nasal See Rx Instructions .Route 05/07/25 08/28/25 Rx spray .COMPLEX #51 mL lisinopril 10 mg tablet 10 mg PO DAILY #90 tabs 06/09/25 08/28/25 Rx desloratadine 5 mg tablet See Rx Instructions .Route 08/10/25 08/28/25 Rx .COMPLEX #90 tabs atogepant 60 mg tablet (Qulipta) 60 mg PO HS 08/21/25 08/28/25 History Allergies Allergy/AdvReac Type Severity Reaction Status Date / Time No Known Allergies Allergy Verified 08/25/25 08:37 Vital Signs Vital Signs - 24 hr 08/28/25 10:13 Temperature 97.7 F Pulse Rate 56 L Respiratory Rate 18 Blood Pressure 107/73 Pulse Oximetry 99 Oxygen Delivery Room Air Exam Const: General: no acute distress and alert Orientation/consciousness: patient oriented x3 HENMT: Head: normocephalic and atraumatic Ears: hearing grossly normal bilaterally Face/Nose/Sinus: Normal nares present Mouth: Yes Normal oral and palatal mucosa present Eyes: Periorbital: periorbital findings normal Sclera: sclerae normal EOM: EOMs intact bilaterally Neck: Neck: normal visual inspection, no lymphadenopathy and trachea midline Chest: Chest palpation & inspection: normal inspection of the chest Resp: Effort & Inspection: normal respiratory effort Auscultation: clear to auscultation bilaterally Cardio: Jugular venous distension: no JVD Rate: regular rate Rhythm: regular rhythm Heart sounds: S1 normal heart sound present and S2 normal heart sound present Peripheral pulses: Peripheral pulses 2+ throughout GI: Inspection: normal to inspection GI Palp: Yes Soft to palpation, No Tenderness to palpation present (GI), No Guarding due to palpation present (GI), Yes Hernia present umbilical < 3 cm and No Rebound tenderness present Percussion: Yes normal to percussion Auscultation: normal bowel sounds : General: Yes no CVA tenderness Back/Spine/Pelvis: Back: no CVA tenderness Neuro: General: patient oriented x3, no focal motor deficits and CN's II-XI intact bilaterally Cognition (Neuro): normal cognition Speech: normal speech Motor exam (neuro): 5/5 motor strength present throughout Extrem: General: capillary refill normal and no clubbing, cyanosis or edema Assessment and Plan Assessment and plan (1) Umbilical hernia: Qualifiers: Obstruction and gangrene presence: without obstruction or gangrene Qualified Code(s): K42.9 - Umbilical hernia without obstruction or gangrene Code(s): K42.9 - Umbilical hernia without obstruction or gangrene Status: Acute Assessment and Plan: I have recommended open umbilical hernia repair with mesh. I have discussed the procedure, risks, benefits, and alternatives with the patient. All questions answered. No changes since last seen in office.
[2025-08-28] MEDS: ceFAZolin 2 GM in SODIUM CHLORIDE 0.9% IV 50 ML 100 ML IVPB (12:24)
--- NOTE | 2025-08-28 13:24 | P.OP_ITS ---
Procedure Note - Detailed Date of Procedure 08/28/25 Pre-op Diagnosis umbilical hernia Post-op Diagnosis Same ( 1 cm umbilical hernia) Procedure Performed Open 1 cm umbilical hernia repair with 4.[address] hernia patch Surgeon Timothy Hernández, DO Anesthesia General and Local (0.5% bupivacaine with epinephrine) Indications this is a 65-year-old man who presented with a bulge at the top portion of his umbilicus and this was causing him some occasional discomfort. It has also slightly increased in size. He was found to have a reducible 1 cm umbilical hernia on exam. Discussions were made with the patient about treatment options and decision was made to proceed with open umbilical hernia repair with mesh. Findings The patient was found to have a 1 cm umbilical hernia containing some preperitoneal fat. An open 1 cm umbilical hernia repair with mesh was performed. The hernia defect was cleared circumferentially and the hernia sac was excised and discarded. The hernia defect measured 1 cm. Decision was made to place a 4.[address] hernia patch. This was secured in place with the fascial closure using 0 Ethibond [id number] sutures. No specimens were obtained for pathology. Description of Procedure Procedure as well as risks, benefits, and alternatives were discussed with the patient. Written consent was obtained and placed in chart prior to procedure. Patient was brought back to surgical suite. He was placed supine on operating table. he was then intubated by Anesthesia Department. his abdomen was prepped and draped in sterile fashion using chlorhexidine prep. 0.5% bupivacaine with epinephrine was infiltrated locally around the operative area. A 5 cm curvilinear incision was made just superior to the umbilicus using a 15 blade scalpel. Electrocautery was used for hemostasis and for dissection down through the subcutaneous fat. Hernia sac was encountered and this was carefully freed up from surrounding subcutaneous fat using electrocautery. The hernia sac was freed up all the way down to the level of the fascia. The hernia sac was transected at the level of the fascia with electrocautery and discarded. The umbilical stalk was then lifted off of the fascia with electrocautery. The hernia defect was then measured. This was measuring approximately 1 cm. The decision was made to use a 4.[address] hernia patch. The peritoneum was cleared under the fascia circumferentially around the hernia using blunt dissection and electrocautery. Once a wide enough pocket was created for the mesh, the mesh was then placed within this preperitoneal pocket and laid out flat centered on the hernia defect. The mesh appeared to be sitting in proper position. The mesh was then secured along with the fascial closure using 0 Eth ibond [id number] sutures. A total of 3 sutures were placed transversely. The repair was inspected and appeared secure. 0.5% bupivacaine with epinephrine was infiltrated around the fascia and subcutaneous space. The umbilical stalk was then reapproximated to the fascia using a 3 0 Vicryl simple interrupted suture. The deep dermis was reapproximated using 3 0 Vicryl simple interrupted sutures, and then the skin was approximated using 4 Monocryl running subcuticular suture. Exofin glue was then applied on top. The patient was then awakened from anesthesia, extubated, and transferred to recovery. Implants 4.[address] hernia patch Estimated Blood Loss 5 Complications No immediate complications Condition Stable Disposition Same day [facility] Billing Surgery - Charge Forward: Surgery Billing
[2025-08-28] MEDS: oxyCODONE HCL (*CRX) 5 MG TAB IR PO (14:30)
== END 2025-08-28 15:06 | disposition home or self-care (01) ==
PROVIDERS: PCP Family Medicine; Visit Provider Surgery
PROC: (CPT 49591; principal; 2025-08-28 12:00)
DX: K42.9 Umbilical hernia without obstruction or gangrene (principal)
CPT/HCPCS: 49591; J0690; A9270; C1781; J1100; J1885; J2405; J2704; J3010; J7120